=== PATIENT | male | born 1990 | race Native Hawaiian/Other Pacific Islander ===

== ENCOUNTER 2016-10-10 13:47 | Emergency (ER) | payer OTHER ==
[~2016-10-10] VITALS: Ht 177.8 cm; Wt 113.4 kg
[2016-10-10 13:52] VITALS: TEMP 98.9
[2016-10-10 14:46] LABS: PLATELET COUNT 350 K/uL (142-355)
[2016-10-10 14:54] LABS: SODIUM 137 mmol/L (136-145)
[2016-10-10 15:23] VITALS: BP 138/82
== END 2016-10-10 15:24 | disposition home or self-care (01) ==
LOC: ED 13:47
DX: K52.9 Noninfective gastroenteritis and colitis, unspecified (principal)
CPT/HCPCS: 80053; 85027; 86318; 96361; 96365; 99284; J2405

== ENCOUNTER 2016-10-18 07:27 | Emergency (ER) | payer OTHER ==
[~2016-10-18] VITALS: Ht 177.8 cm; Wt 108.9 kg
[2016-10-18 07:29] VITALS: TEMP 98.1
[2016-10-18 08:31] LABS: PLATELET COUNT 301 K/uL (142-355)
[2016-10-18 08:57] LABS: POTASSIUM 3.6 mmol/L (3.6-5.2); SODIUM 140 mmol/L (136-145)
[2016-10-18 10:15] VITALS: BP 132/86
== END 2016-10-18 10:20 | disposition home or self-care (01) ==
LOC: ED 07:27
PROVIDERS: Specialist
DX: K52.9 Noninfective gastroenteritis and colitis, unspecified (principal)
CPT/HCPCS: 36415; 43754; 80053; 82150; 83690; 83735; 84100; 85027; 96365; 96375; 99284; J2060; J2175; J2550; J2780; J3490

== ENCOUNTER 2016-11-16 15:14 | Emergency (ER) | payer OTHER ==
[~2016-11-16] VITALS: Ht 177.8 cm; Wt 115.2 kg
[2016-11-16 16:20] LABS: PLATELET COUNT 358 K/uL (142-355)
[2016-11-16 16:50] VITALS: BP 132/62; TEMP 98.7
== END 2016-11-16 16:51 | disposition home or self-care (01) ==
LOC: ED 15:14
PROVIDERS: Family Medicine
DX: K52.9 Noninfective gastroenteritis and colitis, unspecified (principal); R11.11 Vomiting without nausea; R10.9 Unspecified abdominal pain; K21.9 Gastro-esophageal reflux disease without esophagitis
CPT/HCPCS: 36415; 81000; 85027; 99283

== ENCOUNTER 2017-02-10 11:26 | Outpatient (CLI) | payer OTHER | END 2017-02-10 11:30 | disposition short-term general hospital (02) | LOC: AMB 11:26 | DX: R07.89 Other chest pain (principal); F41.8 Other specified anxiety disorders | CPT/HCPCS: A0425; A0427 ==

== ENCOUNTER 2017-02-10 11:30 | Emergency (ER) | payer OTHER ==
[~2017-02-10] VITALS: Ht 185.4 cm; Wt 108.9 kg
[2017-02-10 11:38] VITALS: BP 131/69; TEMP 97.8
== END 2017-02-10 12:40 | disposition home or self-care (01) ==
LOC: ED 11:30
DX: F41.9 Anxiety disorder, unspecified (principal)
CPT/HCPCS: 99281

== ENCOUNTER 2017-02-28 11:48 | Observation (INO) | payer OTHER ==
[~2017-02-28] VITALS: Ht 188 cm; Wt 108.4 kg
[2017-02-28 11:55] VITALS: BP 159/77; TEMP 97.8
[2017-02-28 12:31] LABS: PLATELET COUNT 326 K/uL (142-355)
[2017-02-28 12:39] LABS: POTASSIUM 4.3 mmol/L (3.6-5.2); SODIUM 137 mmol/L (136-145)
[2017-02-28 13:05] VITALS: BP 148/78
[2017-02-28 15:05] VITALS: BP 148/78
[2017-02-28 15:51] VITALS: BP 101/47; TEMP 98.4; Ht 188 cm; Wt 108.4 kg
[2017-02-28 20:00] VITALS: BP 134/76; TEMP 97.7
[2017-03-01] VITALS: BP 121/52; TEMP 97.4
[2017-03-01 04:00] VITALS: BP 119/68; TEMP 98
[2017-03-01 06:35] LABS: PLATELET COUNT 336 K/uL (142-355)
[2017-03-01 06:49] LABS: POTASSIUM 3.9 mmol/L (3.6-5.2); SODIUM 136 mmol/L (136-145)
[2017-03-01 08:00] VITALS: BP 115/56; TEMP 97.6
[2017-03-01 12:00] VITALS: BP 127/76; TEMP 98.1
== END 2017-03-01 16:30 | disposition home or self-care (01) ==
LOC: ED 11:48 → MED/SURG 14:30
DX: R11.2 Nausea with vomiting, unspecified (principal); E86.9 Volume depletion, unspecified; R07.81 Pleurodynia
CPT/HCPCS: 36415; 74022; 80048; 80053; 80307; 81000; 82150; 83690; 83735; 85027; 96361; 96365; 96366; 96374; 96375; 99220; 99284; G0378; G0479; J0696; J1885; J2405; J2550; J2930; J3490

== ENCOUNTER 2017-07-24 07:46 | Outpatient (CLI) | payer OTHER | END 2017-07-24 07:48 | disposition short-term general hospital (02) | LOC: AMB 07:46 | DX: R42 Dizziness and giddiness (principal); R53.81 Other malaise; R11.0 Nausea | CPT/HCPCS: A0425; A0429 ==

== ENCOUNTER 2017-07-24 07:50 | Emergency (ER) | payer OTHER ==
[~2017-07-24] VITALS: Ht 177.8 cm; Wt 108.9 kg
[2017-07-24 07:45] VITALS: TEMP 97.5
[2017-07-24 08:25] LABS: PLATELET COUNT 330 K/uL (142-355)
[2017-07-24 08:33] LABS: POTASSIUM 3.9 mmol/L (3.6-5.2)
[2017-07-24 11:45] VITALS: BP 128/78
== END 2017-07-24 12:00 | disposition home or self-care (01) ==
LOC: ED 07:50
PROVIDERS: Emergency Medicine
DX: A08.4 Viral intestinal infection, unspecified (principal)
CPT/HCPCS: 80053; 82150; 83690; 85027; 86318; 96365; 96374; 99284; J2405; Q9963

== ENCOUNTER 2017-08-15 06:59 | Emergency (ER) | payer OTHER ==
[~2017-08-15] VITALS: Ht 177.8 cm; Wt 110.2 kg
[2017-08-15 08:12] VITALS: BP 128/69; TEMP 97.2
== END 2017-08-15 08:27 | disposition home or self-care (01) ==
LOC: ED 06:59
PROC: 2W3QX1Z Immobilization of Right Lower Leg using Splint (ICD-10-PCS; principal; 2017-08-15)
DX: S82.891A Other fracture of right lower leg, initial encounter for closed fracture (principal); X50.1XXA Overexertion from prolonged static or awkward postures, initial encounter
CPT/HCPCS: 96372; 99282; J1885; L4350

== ENCOUNTER 2022-05-16 20:56 | Emergency (ER) | payer OTHER ==
[~2022-05-16] VITALS: Ht 177.8 cm; Wt 111.1 kg
[2022-05-16 21:46] VITALS: TEMP 98.6
[2022-05-17 00:20] VITALS: BP 132/81
== END 2022-05-17 00:20 | disposition home or self-care (01) ==
LOC: ED 20:56
DX: B37.49 Other urogenital candidiasis (principal)
CPT/HCPCS: 81002; 87490; 87590; 96372; 99283; J0696

== ENCOUNTER 2022-06-09 08:25 | Emergency (ER) | payer OTHER ==
[~2022-06-09] VITALS: Ht 177.8 cm; Wt 115.7 kg
[2022-06-09 08:28] VITALS: BP 126/66; TEMP 97.4
== END 2022-06-09 09:50 | disposition home or self-care (01) ==
LOC: ED 08:25
DX: M62.838 Other muscle spasm (principal)
CPT/HCPCS: 96372; 99283; J1885; J2360

== ENCOUNTER 2022-07-27 14:05 | Emergency (ER) | payer OTHER ==
[~2022-07-27] VITALS: Ht 177.8 cm; Wt 113.4 kg
[2022-07-27 14:55] VITALS: BP 129/83; TEMP 98.2
== END 2022-07-27 14:58 | disposition home or self-care (01) ==
LOC: ED 14:05
DX: M25.562 Pain in left knee (principal); G89.29 Other chronic pain; M25.561 Pain in right knee; Z91.81 History of falling
CPT/HCPCS: 99283; J1885

== ENCOUNTER 2022-08-17 21:52 | Emergency (ER) | payer OTHER ==
[~2022-08-17] VITALS: Ht 177.8 cm; Wt 113.4 kg
[2022-08-17 22:10] VITALS: TEMP 97.3
[2022-08-18 00:30] VITALS: BP 105/66
== END 2022-08-18 00:30 | disposition home or self-care (01) ==
LOC: ED 21:52
DX: K52.89 Other specified noninfective gastroenteritis and colitis (principal)
CPT/HCPCS: 96361; 96374; 99284; J2405

== ENCOUNTER 2022-09-20 14:05 | Emergency (ER) | payer OTHER ==
[~2022-09-20] VITALS: Ht 177.8 cm; Wt 108.9 kg
[2022-09-20 14:12] VITALS: BP 132/88; TEMP 98.2
[2022-09-20 14:37] LABS: POTASSIUM 3.6 mmol/L (3.6-5.2)
[2022-09-20 15:08] LABS: PLATELET COUNT 272 K/uL (142-355)
== END 2022-09-20 16:04 | disposition home or self-care (01) ==
LOC: ED 14:05
PROVIDERS: Emergency Medicine
DX: K21.9 Gastro-esophageal reflux disease without esophagitis (principal); R11.2 Nausea with vomiting, unspecified; K29.70 Gastritis, unspecified, without bleeding; F17.210 Nicotine dependence, cigarettes, uncomplicated; F10.90 Alcohol use, unspecified, uncomplicated; F12.90 Cannabis use, unspecified, uncomplicated
CPT/HCPCS: 80053; 80307; 80320; 81002; 82150; 83690; 84484; 85027; 93005; 96374; 99284; J3490

== ENCOUNTER 2022-12-09 17:15 | Emergency (ER) | payer OTHER ==
[~2022-12-09] VITALS: Ht 177.8 cm; Wt 117.9 kg
[2022-12-10 00:15] VITALS: BP 125/68; TEMP 97.9
== END 2022-12-10 00:15 | disposition home or self-care (01) ==
LOC: ED 17:15
DX: F31.9 Bipolar disorder, unspecified (principal); F32.A Depression, unspecified; F17.210 Nicotine dependence, cigarettes, uncomplicated; F12.90 Cannabis use, unspecified, uncomplicated
CPT/HCPCS: 99285

== ENCOUNTER 2022-12-21 18:23 | Emergency (ER) | payer OTHER ==
[~2022-12-21] VITALS: Ht 177.8 cm; Wt 104.3 kg
[2022-12-21 21:16] LABS: PLATELET COUNT 308 K/uL (142-355)
[2022-12-21 21:23] LABS: SODIUM 139 mmol/L (136-145)
[2022-12-22 07:35] VITALS: BP 115/66; TEMP 98.2
== END 2022-12-22 09:02 | disposition home or self-care (01) ==
LOC: ED 18:23
PROVIDERS: Family Medicine
DX: F32.A Depression, unspecified (principal); F17.200 Nicotine dependence, unspecified, uncomplicated
CPT/HCPCS: 80053; 80143; 80179; 80307; 80320; 81000; 85027; 99283

== ENCOUNTER 2022-12-22 14:48 | Emergency (ER) | payer OTHER ==
[~2022-12-22] VITALS: Ht 177.8 cm; Wt 117.9 kg
[2022-12-22 14:56] VITALS: BP 138/76; TEMP 99.1
== END 2022-12-22 23:10 | disposition still patient (30) ==
LOC: ED 14:48
DX: F32.A Depression, unspecified (principal); R45.851 Suicidal ideations; F17.210 Nicotine dependence, cigarettes, uncomplicated
CPT/HCPCS: 87635; 99283; U0003